=== PATIENT | male | born 1995 | race Caucasian/White ===

== ENCOUNTER 2016-11-30 22:18 | Emergency (ER) | payer OTHER ==
[~2016-11-30 22:18] MED LIST: DEPAKOTE PO; DIASTAT ACUDIAL1 KIT; DILANTIN; IBUPROFEN PO; NAPROSYN500 MG PO; TEGRETOL PO
== END 2016-11-30 22:51 | disposition home or self-care (01) ==
LOC: CFTX 22:18
DX: S01.111A Laceration without foreign body of right eyelid and periocular area, initial encounter (principal); W18.00XA Striking against unspecified object with subsequent fall, initial encounter; Y92.009 Unspecified place in unspecified non-institutional (private) residence as the place of occurrence of the external cause
CPT/HCPCS: 12011; 99283

== ENCOUNTER 2017-01-03 19:20 | Emergency (ER) | payer OTHER ==
--- NOTE | ~2017-01-03 | CT71 ---
[facility] A Service of [facility] RADIOLOGY TEXT RESULTS PATIENT: BRADLEY BETANCOURT LOCATION: LAI : [birth year] UNIT #: [id number] AGE: [address]: Viji Otto MD SEX: M ORDER DR: [id number] [facility]. [place], [place] [address] [id number] E MR#: [id number] Acc #: [id number] NAME: BRADLEY BETANCOURT : 1995 SEX: M STUDY DATE/TIME: 01/03/2017 19:10 UNIT: LAI ROOM: STUDY DESCRIPTION: CT Head Wo Contrast Attending Physician: Viji Otto M.D. Ordering Physician: Viji Otto M.D. Primary Care Physician: Lillian Garcia A.P.R.N. MEDICAL IMAGING REPORT This report is preliminary unless electronic signature is present EXAM Noncontrast head CT. HISTORY Seizure today, abrasions left eyebrow COMPARISON STUDIES Head CT, 08/10/2016. TECHNIQUE Axial noncontrast images were obtained from the skull base to the vertex. This CT exam was performed with one or more of the following radiation dose reduction techniques: automatic exposure control, adjustment of mA and/or kV according to patient size, and iterative reconstruction. FINDINGS Ventricular size and configuration are normal. There is no evidence of acute infarct or hemorrhage. There are no extraaxial fluid collections. No mass lesion or mass effect is seen. There are no skull fractures. IMPRESSION Normal noncontrast head CT. Dictated by... Kiah Olmedo M.D. THIS IS AN ELECTRONICALLY VERIFIED REPORT Kiah Olmedo M.D. at 01/04/2017 3:33 PM ARSEN/giovanna TD: 01/04/2017 06:51 JOB #: [id number] [facility] A Service of [facility] RADIOLOGY TEXT RESULTS PATIENT: BRADLEY BETANCOURT LOCATION: LAI : [birth year] UNIT #: [id number] AGE: [address]: Viji Otto MD SEX: M ORDER DR: MEDICAL IMAGING REPORT Page 1 of 1 COPY
[2017-01-03 19:15] LABS: BASOPHIL# 0.1 X10e3 (0-0.3); BASOPHIL% 0.7 % (0-2.5); EOSINOPHIL# 0.1 X10e3 (0-0.7); EOSINOPHIL% 1.6 % (0.0-7.0); LYMPHOCYTE% 14.5 % (17.0-45.0); MEAN CELL VOLUME 88.9 FL (83-96); MEAN CORPUSCULAR HEMOGLOBIN 29.6 PG (28-34); MEAN CORPUSCULAR HGB CONC 33.3 g/dL (30-36); MEAN PLATELET VOLUME 9.2 FL (6.5-11.5); MONOCYTE# 0.5 X10e3 (0-1.0); MONOCYTE% 7.8 % (3.0-12.0); NEUTROPHIL# 5.3 X10e3 (1.5-7.1); NEUTROPHIL% 75.4 % (40-75); PLATELET COUNT 221 X10e3 (140-420); RED BLOOD COUNT 5.06 X10e (3.90-5.60); WHITE BLOOD COUNT 7.1 X10e3 (4.0-10.5)
[2017-01-03 19:17] LABS: DIFF IND NO
[2017-01-03 19:39] LABS: ALBUMIN SERUM 5.1 g/dL (3.5-5.0); ALKALINE PHOSPHATASE 77 U/L (32-92); ALT (SGPT) 22 U/L (10-40); AST (SGOT) 26 U/L (10-42); BILIRUBIN,TOTAL 0.5 mg/dL (0.2-2.0); BLOOD UREA NITROGEN 13 mg/dL (9-23); BUN/CREATININE RATIO 14.44; CALCIUM SERUM 9.9 mg/dL (8.4-10.2); CARBON DIOXIDE 23 mmol/L (22-31); CHLORIDE 105 mmol/L (100-111); CREATININE SERUM 0.9 mg/dL (0.6-1.4); GLOM FILT RATE Estimated 120.8 mL/min (>60); GLUCOSE FASTING 114 mg/dL (70-110); POTASSIUM 4.6 mmol/L (3.5-5.1); PROTEIN TOTAL SERUM 8.5 g/dL (6.0-8.3); SODIUM 138 mmol/L (135-145)
[2017-01-03 19:40] LABS: ALCOHOL BLOOD <5 mg/dL (0); BILIRUBIN, DIRECT <0.1 mg/dL (0.0-0.2); BILIRUBIN,INDIRECT 0.4 mg/dL (0.0-0.9)
[2017-01-03 21:11] LABS: URINE SOURCE CLEAN CATCH
[2017-01-03 21:18] LABS: URINE APPEARANCE CLEAR; URINE BILIRUBIN NEG (NEG); URINE BLOOD 1+ (NEG); URINE COLOR YELLOW; URINE GLUCOSE NEG (NEG); URINE KETONE TRACE (NEG); URINE LEUKOCYTE ESTERASE NEG (NEG); URINE NITRATE NEG (NEG); URINE PH 5.5 (5-8); URINE PROTEIN TRACE (NEG); URINE SPECIFIC GRAVITY 1.018 (1.003-1.035); URINE UROBILINOGEN 0.2 MG/DL (NEG)
[2017-01-03 21:21] LABS: CULTURE INDICATED? NO; URBCS1 AUWI 0-2 /[HPF] (0-2); URINE BACTERIA AUWI NEG (NEGATIVE); URINE SQUAMOUS EPITHELIAL CELL NONE SEEN /[HPF]; UWBCS1 AUWI 0-2 (0-5)
[2017-01-03 21:28] LABS: AMPHETAMINE NEG (NEG); BARBITURATES NEG (NEG); BENZODIAZEPINES NEG (NEG); COCAINE NEG (NEG); MARIJUANA POS (NEG); OPIATES NEG (NEG); TRICYCLIC ANTIDEPRESSANTS NEG (NEG); U METHADONE NEG (NEG)
== END 2017-01-03 23:34 | disposition home or self-care (01) ==
LOC: CED 19:20
PROVIDERS: Student in an Organized Health Care Education/Training Program
DX: G40.909 Epilepsy, unspecified, not intractable, without status epilepticus (principal); F17.200 Nicotine dependence, unspecified, uncomplicated
CPT/HCPCS: 36415; 70450; 80048; 80076; 80307; 81003; 82947; 85025; 96361; 96374; 99284; G0480; J3360

== ENCOUNTER 2017-04-04 16:51 | Emergency (ER) | payer OTHER ==
--- NOTE | ~2017-04-04 | CT4 ---
[facility] A Service of [facility] RADIOLOGY TEXT RESULTS PATIENT: BRADLEY BETANCOURT LOCATION: [facility] : [birth year] UNIT #: [id number] AGE: [address]: Giovany Russell MD SEX: M ORDER DR: [id number] [facility] [address] [facility]. [place], [place] [address] [id number] E MR#: [id number] Acc #: [id number] NAME: BRADLEY BETANCOURT : 1995 SEX: M STUDY DATE/TIME: 04/04/2017 18:18 UNIT: LAI ROOM: STUDY DESCRIPTION: CT Abd and Pelv Wo Cont Attending Physician: Giovany Russell M.D. Ordering Physician: Giovany Russell M.D. Primary Care Physician: No Primary Care Physician MEDICAL IMAGING REPORT This report is preliminary unless electronic signature is present EXAM CT scan of the abdomen and pelvis without contrast, 04/04/2017. HISTORY Left lower quadrant abdominal pain for 2 weeks with nausea. Evaluate for obstructing renal calculus. TECHNIQUE Spiral CT was performed through the abdomen and pelvis without oral or intravenous contrast administration using renal stone protocol. This CT exam was performed with one or more of the following radiation dose reduction techniques: automatic exposure control, adjustment of mA and/or kV according to patient size, and iterative reconstruction. FINDINGS ABDOMEN: There is no obstructing renal or ureteral calculus. The kidneys are normal bilaterally. The visualized liver, spleen, pancreas, gallbladder and biliary tree and adrenal glands are normal. PELVIS: The gut, mesenteric and regulo structures are normal. There is no free fluid in the abdomen or pelvis. IMPRESSION Negative noncontrast CT of the abdomen and pelvis. No obstructing renal or ureteral calculus. Dictated by... Ji Bradley M.D. THIS IS AN ELECTRONICALLY VERIFIED REPORT Ji Bradley M.D. at 04/05/2017 2:19 PM KRT/jt [facility] A Service of [facility] RADIOLOGY TEXT RESULTS PATIENT: BRADLEY BETANCOURT LOCATION: [facility] : [birth year] UNIT #: [id number] AGE: [address]: Giovany Russell MD SEX: M ORDER DR: TD: 04/04/2017 23:54 JOB #: [id number] MEDICAL IMAGING REPORT Page 1 of 1 COPY
[2017-04-04 17:06] LABS: URINE SOURCE CLEAN CATCH
[2017-04-04 17:13] LABS: URINE APPEARANCE CLEAR; URINE BILIRUBIN NEG (NEG); URINE BLOOD NEG (NEG); URINE COLOR YELLOW; URINE GLUCOSE NEG (NEG); URINE KETONE NEG (NEG); URINE LEUKOCYTE ESTERASE NEG (NEG); URINE NITRATE NEG (NEG); URINE PROTEIN NEG (NEG); URINE SPECIFIC GRAVITY 1.024 (1.003-1.035)
[2017-04-04 17:17] LABS: CULTURE INDICATED? NO
[2017-04-04 17:20] LABS: BASOPHIL# 0.1 X10e3 (0-0.3); BASOPHIL% 0.9 % (0-2.5); EOSINOPHIL# 0.2 X10e3 (0-0.7); EOSINOPHIL% 2.2 % (0.0-7.0); HEMOGLOBIN 15.4 gm/dL (13.0-16.0); LYMPHOCYTE# 1.9 X10e3 (1.0-3.5); LYMPHOCYTE% 22.9 % (17.0-45.0); MEAN CORPUSCULAR HEMOGLOBIN 29.6 PG (28-34); MEAN CORPUSCULAR HGB CONC 32.9 g/dL (30-36); MEAN PLATELET VOLUME 8.7 FL (6.5-11.5); MONOCYTE# 0.7 X10e3 (0-1.0); MONOCYTE% 7.9 % (3.0-12.0); NEUTROPHIL# 5.6 X10e3 (1.5-7.1); NEUTROPHIL% 66.1 % (40-75); PLATELET COUNT 215 X10e3 (140-420); RED BLOOD COUNT 5.22 X10e (3.90-5.60); WHITE BLOOD COUNT 8.5 X10e3 (4.0-10.5)
[2017-04-04 17:31] LABS: DIFF IND NO
[2017-04-04 17:44] LABS: BILIRUBIN, DIRECT 0.1 mg/dL (0.0-0.2); BILIRUBIN,INDIRECT 0.7 mg/dL (0.0-0.9); BILIRUBIN,TOTAL 0.8 mg/dL (0.2-2.0); BUN/CREATININE RATIO 17.14; CALCIUM SERUM 9.6 mg/dL (8.4-10.2); CREATININE SERUM 0.7 mg/dL (0.6-1.4); POTASSIUM 3.9 mmol/L (3.5-5.1); PROTEIN TOTAL SERUM 8.3 g/dL (6.0-8.3)
== END 2017-04-04 19:45 | disposition home or self-care (01) ==
LOC: CED 16:51
DX: R10.32 Left lower quadrant pain (principal)
CPT/HCPCS: 36415; 74176; 80048; 80076; 81003; 83690; 85025; 99284; J1885

== ENCOUNTER → 2017-05-01 | Outpatient (CLI) | payer OTHER ==
--- NOTE | ~2017-05-01 | MR17 ---
[facility] A Service of [facility] & [facility] RADIOLOGY TEXT RESULTS PATIENT: BRADLEY BETANCOURT LOCATION: CEEG : [birth year] UNIT #: [id number] AGE: [address]: Erik Claire II, MD SEX: M ORDER DR: [id number] [facility] [address] [place], [place] [address] [id number] O MR#: [id number] Acc #: [id number] NAME: BRADLEY BETANCOURT : 1995 SEX: M STUDY DATE/TIME: 05/01/2017 10:21 UNIT: CEEG ROOM: STUDY DESCRIPTION: MR Brain WWo Contrast Attending Physician: Erik Claire II., M.D. Referring Physician: Erik Claire II., M.D. Ordering Physician: Erik Claire II., M.D. Primary Care Physician: Primary Care Physician No MRI CENTER REPORT This report is preliminary unless electronic signature is present. EXAM MRI of the brain with and without contrast dated 05/01/[address] head without contrast dated 01/03/2017 HISTORY Seizures for 15 years. The last seizure was 3 months ago. Patient has been on seizure medication for the last 15 years. FINDINGS Multisequence multiplanar imaging of the brain was obtained with and without contrast. 13 mL of MultiHance was administered intravenously. No acute stroke, space-occupying intracranial mass, mass effect, midline shift or hydrocephalus. Nicholas-white junction is preserved. Basal ganglia, brainstem and cerebellar hemispheres are within normal limits. Vascular flow voids of the major cerebral arteries and dural venous sinuses are not completely occluded in these thicker slices. Mild S-shaped nasal septal deviation is seen with mild right sphenoid sinus and bilateral ethmoid sinus mucosal thickening. Imaged orbits with the ocular structures and mastoids are unremarkable. Thick slices through the sella with the pituitary gland, pineal region and upper cervical spine are within normal limits. Thin coronal T2 sequence through the hippocampal formations demonstrate normal shape, size and signal characteristics after giving allowances to the head tilt. Postcontrast sequences do not demonstrate enhancing lesions. IMPRESSION 1. No demonstrable intracranial abnormality. 2. Mild paranasal sinus mucosal thickening with S-shaped mild nasal septal deviation. STS. [facility] A Service of [facility] & [facility] RADIOLOGY TEXT RESULTS PATIENT: BRADLEY BETANCOURT LOCATION: CEEG : [birth year] UNIT #: [id number] AGE: [address]: Erik Claire II, MD SEX: M ORDER DR: Dictated by... Sara Duron M.D. THIS IS AN ELECTRONICALLY VERIFIED REPORT Sara Duron M.D. at 05/03/2017 3:24 PM CPR/jc TD: 05/02/2017 16:31 JOB #: [id number] MRI CENTER REPORT Page 1 of 1 COPY
--- NOTE | ~2017-05-01 | EE ---
Unit #: [id number] #: [id number] Patient: BRADLEY BETANCOURT [id number] [address] [address] [id number] O MR#: [id number] NAME: BRADLEY BETANCOURT : 1995 SEX: M STUDY DATE/TIME: 05/01/2017 UNIT: CEEG ROOM: STUDY DESCRIPTION: EEG Attending Physician: Erik Claire II., M.D. Referring Physician: Erik Claire II., M.D. Primary Care Physician: Primary Care Physician No NEURODIAGNOSTICS REPORT REASON FOR STUDY Seizures. [employer] TECHNICAL INFORMATION This is a routine EEG performed using the standard International 10-20 System of electrode placement. Photic stimulation was performed. Hyperventilation was also performed. REPORT Throughout the entire study, the best background rhythm seen is approximately 10-11 Hz. This rhythm is seen in both posterior head regions symmetrically and does attenuate with eye opening and closure. Hyperventilation was performed which did not elicit any abnormal build-up. Photic stimulation was also performed which did not appear to elicit any epileptiform abnormalities. Throughout the entire study there were no electrographic seizures recorded norm where there any independent epileptiform activity seen. There was no sleep recorded during the EEG. INTERPRETATION This is a normal awake EEG. A normal EEG does not rule out the possibility of seizure disorder. Clinical correlation is advised. Dictated by... Erik Claire II., M.D. GWS/janette TD: 05/08/2017 12:42 JOB #: [id number] Unit #: [id number] #: [id number] Patient: BRADLEY BETANCOURT NEURODIAGNOSTICS REPORT Page 1 of 1 X NEURODIAGNOSTICS REPORT
== END | disposition home or self-care (01) ==
LOC: CEEG 04-17 09:00
DX: G40.909 Epilepsy, unspecified, not intractable, without status epilepticus (principal); J34.2 Deviated nasal septum; J34.89 Other specified disorders of nose and nasal sinuses
CPT/HCPCS: 70553; 95816; A9577